=== PATIENT | female | born 1945 | race Caucasian/White ===

== ENCOUNTER 2017-11-07 09:06 | Inpatient (IN) | payer OTHER ==
[~2017-11-07] VITALS: Ht 167.6 cm; Wt 38.1 kg
[2017-11-07] MEDS ORDERED: methylPREDNISolone SOD SUCC 125 MG/2ML VIAL ONE (09:18)
[2017-11-07] MEDS ORDERED: methylPREDNISolone SOD SUCC 125 MG/2ML VIAL IV ONE (09:30)
[2017-11-07] MEDS ORDERED: IPRATROPIUM NEB FS 0.5 MG/2.5 ML AMPUL.NEB NEB ONE ×2 (09:30→10:00)
[2017-11-07] MEDS ORDERED: ALBUTEROL FS 2.5 MG/3 ML VIAL.NEB NEB ONE ×2 (09:30→10:00)
--- NOTE | 2017-11-07 09:30 | NUR ---
BB FAMILY: SOB, COPD EXACERBATION X 1 WEEK. SEEN BY FOR EVAL. PT CAME IN WITH PROTABLE OXYGEN, HX OF HYPOXIA. PT AAOX3. SAFETY AND COMFORT MEASURES PROVIDED. WILL MONITOR.
[2017-11-07 09:43] LABS: CALCIUM, SERUM 9.2 mg/dL (8.5-10.1); CARBON DIOXIDE 33 mmol/L (21-32); CHLORIDE 96 mmol/L (98-107); CREATININE 0.8 mg/dL (0.6-1.3); GLUCOSE 198 mg/dL (74-106); POTASSIUM 4.9 mmol/L (3.5-5.1); SODIUM SERUM 134 mmol/L (136-145); UREA NITROGEN, BLOOD 21 mg/dL (7-18)
[2017-11-07 09:46] LABS: BASOPHILS # (AUTO) 0.1 /CMM (0.0-0.2); BASOPHILS % (AUTO) 0.3 % (0.0-2.0); EOSINOPHILS # (AUTO) 0.1 /CMM (0.0-0.7); EOSINOPHILS % (AUTO) 0.4 % (0.0-6.0); HEMATOCRIT 48 % (33-45); HEMOGLOBIN 15.2 g/dL (11.5-14.8); LYMPHOCYTES # (AUTO) 1.7 /CMM (0.8-4.8); LYMPHOCYTES % (AUTO) 6.6 % (20.0-44.0); MEAN CORPUSCULAR HEMOGLOBIN 30 PG (26.0-33.0); MEAN CORPUSCULAR HGB CONC 32 g/dl (31.0-36.0); MEAN CORPUSCULAR VOLUME 94 fL (82-100); MONOCYTES # (AUTO) 1.2 /CMM (0.1-1.30); MONOCYTES % (AUTO) 4.6 % (2.0-12.0); NEUTROPHILS # (AUTO) 22.4 /CMM (1.8-8.9); NEUTROPHILS % (AUTO) 88.1 % (43.0-81.0); PLATELET COUNT (AUTO) 341 /CMM (150-450); RED BLOOD CELL COUNT(AUTO) 5.08 MIL/uL (4.0-5.2); WHITE BLOOD COUNT (AUTO) 25.4 K/uL (4.3-11.0)
[2017-11-07 09:53] LABS: TROPONIN I 1.503 ng/mL (0.00-0.056)
--- NOTE | 2017-11-07 09:54 | NUR ---
IV ACCESS STARTED. BLOOD DRAWN FOR LABS. PT MEDICATED ORDERED.
[2017-11-07 09:55] LABS: ALANINE AMINOTRANSFERASE 48 U/L (12-78); ALBUMIN 3.1 g/dL (3.4-5.0); ALKALINE PHOSPHATASE 207 U/L (46-116); ASPARTATE AMINOTRANSFERASE 54 U/L (15-37); B-TYPE NATRIURETIC PEPTIDE 8523 PG/ML (0-125); BILIRUBIN,TOTAL 0.5 mg/dL (0.2-1.0); TOTAL PROTEIN, SERUM 8.8 g/dL (6.4-8.2)
[2017-11-07] MEDS ORDERED: ALBUTEROL FS 2.5 MG/3 ML VIAL.NEB ONE (09:58)
[2017-11-07] MEDS ORDERED: IPRATROPIUM NEB FS 0.5 MG/2.5 ML AMPUL.NEB ONE (09:58)
[2017-11-07] MEDS ORDERED: ASPIRIN 325 MG TABLET PO ONE (10:00)
[2017-11-07] MEDS ORDERED: ASPIRIN 325 MG TABLET ONE (10:19)
[2017-11-07] MEDS ORDERED: ALEN70TA45 PO (10:34)
[2017-11-07] MEDS ORDERED: FLUT1DIS3 IH (10:34)
[2017-11-07] MEDS ORDERED: AMOX500T2 PO (10:34)
[2017-11-07] MEDS ORDERED: METO-356 PO (10:34)
[2017-11-07] MEDS ORDERED: PRED5TAB PO (10:34)
[2017-11-07] MEDS ORDERED: AMLO10TA4 PO (10:34)
[2017-11-07] MEDS ORDERED: ALBU18HF2 IH (10:34)
[2017-11-07] MEDS ORDERED: TIOT18CA3 IH (10:38)
[2017-11-07] MEDS ORDERED: [UNRECOGNIZED DRUG - OTHER] PO (10:38)
[2017-11-07] MEDS ORDERED: LACT237L30 PO (10:38)
--- NOTE | 2017-11-07 10:43 | NUR ---
REPORT GIVEN TO MARLON HUANG FOR AGUILA
--- NOTE | 2017-11-07 11:20 | NUR ---
RN NOTES ADMITTED A 72Y/O M FROM ER WITH DX OF SOB AND COPD. PT IS TRANSPORTED VIA STRETCHER ACCOMPANIED BY RN AND TECH. PT ALERT ORIENTEDX3 ABLE TO COMMUNICATE NEEDS, ON O2@2LPM VIA NC. AND SISTER AT BEDSIDE. DENIES PAIN AND CHEST PAIN AT THIS TIME. PATIENT REFUSED BODY CHECK SHE DENIES ANY SKIN ISSUES. ORIENTED TO UNIT AND CALL LIGHT USE, SAFETY MAINTAINED. CALL LIGHT WITHIN REACH, WILL CONT TO MONITOR
[2017-11-07] MEDS ORDERED: LEVALBUTEROL HCL NEB 1.25 MG/0.5 ML VIAL.NEB IH SCH (11:30)
[2017-11-07] MEDS ORDERED: TIOTROPIUM BROMIDE 6 CAP/BOX CAP.W.DEV IH SCH (11:30)
[2017-11-07] MEDS: IPRATROPIUM NEB FS 0.5 MG/2.5 ML AMPUL.NEB NEB SCH ×4 (11:54→23:26)
[2017-11-07 12:12] LABS: ABG BASE EXCESS 1.7 mmol/L; ABG OXYGEN SATURATION 87.4 % (92.0-98.5); ABG PCO2 52.2 mmHg (35.0-45.0); ABG PH 7.352 (7.350-7.450); ABG PO2 55.6 mmHg (75.0-100.0); AaDO2 89.7 mmHg; MetHb 0.4 % (0.0-1.5); O2Hb 86.2 % (94.0-97.0); SITE, ABG Right Brachial; VENT MODE, BG nasal cannula
[2017-11-07 12:13] LABS: MAGNESIUM 1.8 mg/dL (1.8-2.4); PHOSPHORUS 3.7 mg/dL (2.5-4.9)
[2017-11-07] MEDS: FLUTICASONE/VILANTEROL 1 EACH BLST.W.DEV IH SCH (12:30)
[2017-11-07] MEDS ORDERED: MORPHINE SULFATE INJ 2 MG/ML DISP.SYRIN IV PRN ×2 (12:30)
[2017-11-07] MEDS ORDERED: LORAZEPAM 0.5 MG TABLET PO PRN (12:30)
[2017-11-07] MEDS ORDERED: NITROGLYCERIN 0.4 MG/TAB BOTTLE SL PRN (12:30)
[2017-11-07 12:34] LABS: THYROID STIMULATING HORMONE 1.35 uIU/mL (0.358-3.74)
[2017-11-07] MEDS: DILTIAZEM HCL CD 240 MG PO SCH (13:10)
[2017-11-07] MEDS: ATORVASTATIN 40 MG TABLET PO SCH (13:11)
[2017-11-07] MEDS: LEVOFLOXACIN (500MG) 500 MG TABLET PO SCH (13:11)
[2017-11-07] MEDS: ASPIRIN 81 MG TAB.CHEW PO SCH (13:11)
[2017-11-07] MEDS: ENOXAPARIN SODIUM 60 MG/0.6 ML DISP.SYRIN SQ SCH ×2 (13:18→22:43)
[2017-11-07] MEDS: IV NS 0.9% 1,000 ML IV PRN ×2 (13:21→21:52)
[2017-11-07 13:28] VITALS: BP 128/63
[2017-11-07] MEDS ORDERED: IPRATROPIUM NEB FS 0.5 MG/2.5 ML AMPUL.NEB NEB SCH (13:30)
[2017-11-07] MEDS ORDERED: ALBUTEROL FS 2.5 MG/0.5 ML VIAL.NEB NEB SCH (13:30)
[2017-11-07] MEDS: ALBUTEROL FS 2.5 MG/0.5 ML VIAL.NEB NEB SCH ×3 (14:59→23:26)
--- NOTE | 2017-11-07 15:28 | NUR ---
RN NOTES URINE SAMPLE COLLLECTED, CALLED LAB FOR SPECIMEN PICKUP
[2017-11-07 16:00] VITALS: BP 130/83
[2017-11-07 16:13] LABS: APPEARANCE,URINE SL CLOUDY (CLEAR); BILIRUBIN,URINE 1+ (NEGATIVE); BLOOD, URINE TRACE-INTA Ery/uL (NEGATIVE); COLOR,URINE YELLOW (YELLOW); KETONES,URINE NEGATIVE (NEGATIVE); LEUKOCYTE ESTERASE ,URINE NEGATIVE (NEGATIVE); NITRITE, URINE NEGATIVE (NEGATIVE); PROTEIN,URINE 2+ mg/dl (NEGATIVE); UGLUCOSE 1+ mg/dL (NEGATIVE); UROBILINOGEN,URINE 0.2 EU/dL (0.2)
[2017-11-07] MEDS ORDERED: FLUTICASONE/SALMETEROL DISKUS IH SCH (17:00)
[2017-11-07] MEDS: methylPREDNISolone SOD SUCC 125 MG/2ML VIAL IV SCH (17:42)
[2017-11-07 20:00] VITALS: BP 121/61
--- NOTE | 2017-11-07 20:00 | NUR ---
ANNABELLA RN NOTES RECEIVED PTS IN BED A/O X4 AMBULATORY , ABLE TO MAKE NEEDS KNOWN.ON TELE SR-ST WITH PAC,ON THE MONITOR SATING 98% NO SOB NO DISTRESS NOTED NO C/O PAIN AT THIS TIME, PTS IS AMBULATORY , WITH 02 VIA NC AT 2LITERS /MIN, ALL NEEDS ATTENDED TOO CALL LIGHT WITHIN REACH , ALL DUE MEDS GIVEN ORDERED, KEPT PTS CLEAN DRY AND COMFORTABLE.WILL CONTINUE TO MONITOR.
[2017-11-08] VITALS: BP 110/62
[2017-11-08] MEDS: methylPREDNISolone SOD SUCC 125 MG/2ML VIAL IV SCH ×3 (00:46→16:26)
[2017-11-08] MEDS: IPRATROPIUM NEB FS 0.5 MG/2.5 ML AMPUL.NEB NEB SCH ×6 (03:16→23:30)
[2017-11-08] MEDS: ALBUTEROL FS 2.5 MG/0.5 ML VIAL.NEB NEB SCH ×6 (03:16→23:30)
--- NOTE | 2017-11-08 03:40 | NUR ---
ANNABELLA RN NOTES REMAINS WITH RIGHT HAND G#20 IVF OF NS AT 125CC/HR INFUSING WELL.
[2017-11-08 04:00] VITALS: BP 116/59
[2017-11-08 06:37] LABS: INR 0.99 (0.87-1.13); PROTHROMBIN TIME 10.3 SECS (9.5-12.7)
[2017-11-08 06:39] LABS: HEMATOCRIT 43 % (33-45); HEMOGLOBIN 13.8 g/dL (11.5-14.8); LYMPHOCYTES # (AUTO) 0.5 /CMM (0.8-4.8); LYMPHOCYTES % (AUTO) 3.6 % (20.0-44.0); MEAN CORPUSCULAR HEMOGLOBIN 30 PG (26.0-33.0); MEAN CORPUSCULAR HGB CONC 32 g/dl (31.0-36.0); MEAN CORPUSCULAR VOLUME 94 fL (82-100); MONOCYTES # (AUTO) 0.3 /CMM (0.1-1.30); MONOCYTES % (AUTO) 2.8 % (2.0-12.0); NEUTROPHILS # (AUTO) 11.8 /CMM (1.8-8.9); NEUTROPHILS % (AUTO) 93.6 % (43.0-81.0); PLATELET COUNT (AUTO) 352 /CMM (150-450); RDW COEFFICIENT OF VARIATION 13.7 (11.5-15.0); RED BLOOD CELL COUNT(AUTO) 4.58 MIL/uL (4.0-5.2); WHITE BLOOD COUNT (AUTO) 12.6 K/uL (4.3-11.0)
[2017-11-08 06:49] LABS: ALANINE AMINOTRANSFERASE 42 U/L (12-78); ALBUMIN 2.8 g/dL (3.4-5.0); ALKALINE PHOSPHATASE 173 U/L (46-116); ASPARTATE AMINOTRANSFERASE 26 U/L (15-37); BILIRUBIN,TOTAL 0.4 mg/dL (0.2-1.0); CALCIUM, SERUM 8.6 mg/dL (8.5-10.1); CARBON DIOXIDE 36 mmol/L (21-32); CHLORIDE 103 mmol/L (98-107); CREATININE 0.6 mg/dL (0.6-1.3); GLUCOSE 174 mg/dL (74-106); PHOSPHORUS 2.8 mg/dL (2.5-4.9); POTASSIUM 5.2 mmol/L (3.5-5.1); SODIUM SERUM 141 mmol/L (136-145); TOTAL PROTEIN, SERUM 7.6 g/dL (6.4-8.2); UREA NITROGEN, BLOOD 19 mg/dL (7-18)
[2017-11-08 07:07] LABS: TROPONIN I 0.997 ng/mL (0.00-0.056)
[2017-11-08 07:09] LABS: AMYLASE 36 U/L (25-115); LIPASE 187 U/L (73-393)
--- NOTE | 2017-11-08 07:31 | NUR ---
ANNABELLA RN NOTES RECEIVED PT ON BED. A/O X 4. ON BRICKLAYER'S ASSISTANT SR-ST WITH PAC. ON NASAL CANNULA 2L TOLERATING WELL. IV ACCESS ON RIGHT HAND 20G NS @125CC/HR SATURATING WELL.SIDE RAILS UP. HEAD OF BED ELEVATED. CALL WITHIN REACH. WILL CONTINUE TO MONITOR PT CLOSELY.
[2017-11-08 08:00] VITALS: BP 116/55
[2017-11-08] MEDS: DILTIAZEM HCL CD 240 MG PO SCH (08:15)
[2017-11-08] MEDS: ATORVASTATIN 40 MG TABLET PO SCH (08:15)
[2017-11-08] MEDS: FLUTICASONE/VILANTEROL 1 EACH BLST.W.DEV IH SCH (08:15)
[2017-11-08] MEDS: ASPIRIN 81 MG TAB.CHEW PO SCH (08:16)
[2017-11-08] MEDS: IV NS 0.9% 1,000 ML IV PRN (11:50)
[2017-11-08 12:00] VITALS: BP 112/53
[2017-11-08] MEDS: LEVOFLOXACIN (500MG) 500 MG TABLET PO SCH (12:03)
--- NOTE | 2017-11-08 13:32 | NUR ---
HEALTHCARE ANALYST NOTES NOTIFIED DR DEAL ABOUT PT HAVING VTACH EPISODE AT 1046AM. ORDERD LABS AND WILL NOTIFY DR. RANKIN.
[2017-11-08 16:00] VITALS: BP 119/58
--- NOTE | 2017-11-08 18:52 | NUR ---
INTEGRATED LOGISTICS PROGRAMS DIRECTOR NOTES NO ACUTE CHANGES NOTED DURING THE SHIFT. IV ACCESS ON YAN #20 RUNNING WELL. ON NC 2L TOLERATING WELL. NO SIGNS OF DISTRESS. CALL LIGHT IS PLACED WITHIN REACH. SIDE RAILS UP. HEAD OF BED ELEVATED. DUE MEDS GIVEN. WILL ENDORSE TO THE PM NURSE.
--- NOTE | 2017-11-08 19:30 | NUR ---
ASSISTANT MANAGER RETAIL INITIAL NOTE PT RECEIVED AWAKE AND ALERT SITTING UP IN BED. A/O X4 AND ABLE TO VERBALIZE NEEDS. ON 2L OF O2VIA NC AND SATURATING 95%. BREATHING EVEN AND UNLABORED WHEN IN BED. NOTED TO HAVE SOB WHEN AMBULATING TO THE RESTROOM. TELE- SR 81 WITH PAC. IV YAN #20 CLEAN AND DRY WITH FLUIDS INFUSING. NO C/O DISCOMFORT NOTED. HOB ELEVATED. CALL LIGHT WITHIN REACH. WILL CONTINUE TO MONITOR.
[2017-11-08 20:00] VITALS: BP 110/54
[2017-11-09] VITALS: BP 105/53
[2017-11-09] MEDS: methylPREDNISolone SOD SUCC 125 MG/2ML VIAL IV SCH ×3 (00:54→16:32)
[2017-11-09] MEDS: ALBUTEROL FS 2.5 MG/0.5 ML VIAL.NEB NEB SCH ×3 (03:30→11:46)
[2017-11-09] MEDS: IPRATROPIUM NEB FS 0.5 MG/2.5 ML AMPUL.NEB NEB SCH ×6 (03:30→23:18)
[2017-11-09 04:00] VITALS: BP 102/40
--- NOTE | 2017-11-09 06:42 | NUR ---
SUPPORT ENGINEER CLOSING NOTE PT REMAINED STABLE DURING SHIFT. NO ACUTE DISTRESS NOTED. NOTED WITH SOB DURING AMBULATION TO THE RESTROOM. HOB ELEVATED. ON 2L OF O2 AND TOLERATING WELL. CALL LIGHT WITHIN REACH. WILL ENDORSE TO NEXT SHIFT FOR CONTINUITY OF CARE.
[2017-11-09 06:54] LABS: HEMATOCRIT 41 % (33-45); HEMOGLOBIN 13.1 g/dL (11.5-14.8); LYMPHOCYTES # (AUTO) 0.5 /CMM (0.8-4.8); LYMPHOCYTES % (AUTO) 2.2 % (20.0-44.0); MEAN CORPUSCULAR HEMOGLOBIN 30 PG (26.0-33.0); MEAN CORPUSCULAR HGB CONC 32 g/dl (31.0-36.0); MEAN CORPUSCULAR VOLUME 94 fL (82-100); MONOCYTES # (AUTO) 0.6 /CMM (0.1-1.30); NEUTROPHILS # (AUTO) 20.3 /CMM (1.8-8.9); NEUTROPHILS % (AUTO) 94.8 % (43.0-81.0); PLATELET COUNT (AUTO) 395 /CMM (150-450); RDW COEFFICIENT OF VARIATION 13.5 (11.5-15.0); RED BLOOD CELL COUNT(AUTO) 4.36 MIL/uL (4.0-5.2); WHITE BLOOD COUNT (AUTO) 21.4 K/uL (4.3-11.0)
[2017-11-09 07:09] LABS: ALANINE AMINOTRANSFERASE 52 U/L (12-78); ALBUMIN 2.7 g/dL (3.4-5.0); ALKALINE PHOSPHATASE 213 U/L (46-116); ASPARTATE AMINOTRANSFERASE 34 U/L (15-37); BILIRUBIN,TOTAL 0.3 mg/dL (0.2-1.0); CALCIUM, SERUM 8.6 mg/dL (8.5-10.1); CARBON DIOXIDE 36 mmol/L (21-32); CHLORIDE 105 mmol/L (98-107); CREATININE 0.6 mg/dL (0.6-1.3); GLUCOSE 179 mg/dL (74-106); MAGNESIUM 2.1 mg/dL (1.8-2.4); PHOSPHORUS 2.1 mg/dL (2.5-4.9); POTASSIUM 4.8 mmol/L (3.5-5.1); SODIUM SERUM 143 mmol/L (136-145); TOTAL PROTEIN, SERUM 7.2 g/dL (6.4-8.2); UREA NITROGEN, BLOOD 17 mg/dL (7-18)
[2017-11-09 08:00] VITALS: BP 124/58
[2017-11-09] MEDS: FLUTICASONE/VILANTEROL 1 EACH BLST.W.DEV IH SCH (08:34)
[2017-11-09] MEDS: ASPIRIN 81 MG TAB.CHEW PO SCH (08:35)
[2017-11-09] MEDS: DILTIAZEM HCL CD 240 MG PO SCH (08:35)
[2017-11-09 08:36] LABS: TROPONIN I 0.743 ng/mL (0.00-0.056)
[2017-11-09] MEDS: ATORVASTATIN 40 MG TABLET PO SCH (08:38)
[2017-11-09] MEDS: IV NS 0.9% 1,000 ML IV PRN ×2 (08:39→15:35)
[2017-11-09] MEDS: LEVOFLOXACIN (500MG) 500 MG TABLET PO SCH (11:05)
[2017-11-09 12:00] VITALS: BP 122/64
[2017-11-09] MEDS: LEVALBUTEROL HCL NEB 1.25 MG/0.5 ML VIAL.NEB NEB SCH ×2 (14:54→23:18)
[2017-11-09 16:00] VITALS: BP 110/56
[2017-11-09] MEDS ORDERED: K PHOS NEUTRAL 250 MG TABLET PO ONE (16:30)
--- NOTE | 2017-11-09 18:16 | NUR ---
Tele/RN - Notes Patient alert and oriented throughout the shift, no acute distress, still with SOB when ambulating to the toilet, non- productive cough, exp. wheezing, denies chest pain, tele shows SR-ST with PACs. Patient was educated to increase fluid intake to help liquefy secretions and assisted with ADLs to prevent exhaustion. Patient currently on NS @ 125 ml/hr to maintain hydration, on Solumedrol, breathing tx, and oral Levaquin. All needs anticipated and met. Will continue with current medical management.
--- NOTE | 2017-11-09 19:10 | NUR ---
PHYSICIAN NON INVASIVE CARDIOLOGIST OPENING NOTES RECEIVED REPORT FROM AM RN. PATIENT A/A/O X4, ABLE TO MAKE NEEDS KNOWN. SOME SOB NOTED W/ EXERTION BUT DENIES DIFFICULTY BREATHING. PATIENT ON O2 4L VIA NC & TOLERATING WELL. ON TELE SINUS RHYTHM IN THE 80S. RIGHT AC IV #20 INTACT & PATENT W/ DRESSING CDI & IVF NS @ 125 ML/HR. DENIES ANY PAIN OR DISCOMFORT @ THIS TIME. SAFETY MEASURES IN PLACE W/ SIDE RAILS UP, BED LOCKED & IN LOWEST POSITION & CALL LIGHT WITHIN REACH. WILL CONTINUE TO MONITOR.
[2017-11-09 20:00] VITALS: BP 127/61
[2017-11-10] VITALS: BP 148/75
[2017-11-10] MEDS: methylPREDNISolone SOD SUCC 125 MG/2ML VIAL IV SCH ×3 (00:24→16:21)
[2017-11-10] MEDS: IV NS 0.9% 1,000 ML IV PRN ×2 (01:31→23:12)
[2017-11-10] MEDS: IPRATROPIUM NEB FS 0.5 MG/2.5 ML AMPUL.NEB NEB SCH ×6 (03:50→23:37)
[2017-11-10 04:00] VITALS: BP 141/70
[2017-11-10 07:17] LABS: CALCIUM, SERUM 8.2 mg/dL (8.5-10.1); CARBON DIOXIDE 35 mmol/L (21-32); CHLORIDE 103 mmol/L (98-107); CREATININE 0.5 mg/dL (0.6-1.3); GLUCOSE 179 mg/dL (74-106); MAGNESIUM 1.9 mg/dL (1.8-2.4); PHOSPHORUS 2.4 mg/dL (2.5-4.9); POTASSIUM 3.9 mmol/L (3.5-5.1); SODIUM SERUM 143 mmol/L (136-145); UREA NITROGEN, BLOOD 15 mg/dL (7-18)
[2017-11-10 07:23] LABS: HEMATOCRIT 40 % (33-45); LYMPHOCYTES # (AUTO) 0.3 /CMM (0.8-4.8); LYMPHOCYTES % (AUTO) 1.3 % (20.0-44.0); MEAN CORPUSCULAR HEMOGLOBIN 31 PG (26.0-33.0); MEAN CORPUSCULAR HGB CONC 32 g/dl (31.0-36.0); MEAN CORPUSCULAR VOLUME 95 fL (82-100); MONOCYTES # (AUTO) 0.6 /CMM (0.1-1.30); MONOCYTES % (AUTO) 2.5 % (2.0-12.0); NEUTROPHILS # (AUTO) 22.1 /CMM (1.8-8.9); NEUTROPHILS % (AUTO) 96.2 % (43.0-81.0); PLATELET COUNT (AUTO) 428 /CMM (150-450); RDW COEFFICIENT OF VARIATION 13.5 (11.5-15.0); RED BLOOD CELL COUNT(AUTO) 4.25 MIL/uL (4.0-5.2)
--- NOTE | 2017-11-10 07:30 | NUR ---
SENIOR QUALITY CONTROL TECHNICIAN AM NOTES PT IN BED, A/A/O X4, ABLE TO MAKE NEEDS KNOWN. AFEBRILE. SOME SOB NOTED W/ EXERTION BUT DENIES DIFFICULTY BREATHING. PATIENT ON O2 2L VIA NC & TOLERATING WELL. TELEMETRY READS SR, HR 96, DENIES CHEST PAIN/DISCOMFORT, RT AC G20 WITH NS @ 125 ML/HR. SITE CLEAR, AMBULATES WITH ASSIST, REGULAR DIET, SAFETY MEASURES IN PLACE W/ SIDE RAILS UP, BED LOCKED & IN LOWEST POSITION & CALL LIGHT WITHIN REACH. WILL CONTINUE TO MONITOR.
[2017-11-10] MEDS: LEVALBUTEROL HCL NEB 1.25 MG/0.5 ML VIAL.NEB NEB SCH ×3 (07:36→23:37)
[2017-11-10 08:00] VITALS: BP 134/57
[2017-11-10] MEDS: FLUTICASONE/VILANTEROL 1 EACH BLST.W.DEV IH SCH (09:24)
[2017-11-10] MEDS: ATORVASTATIN 40 MG TABLET PO SCH (09:25)
[2017-11-10] MEDS: DILTIAZEM HCL CD 240 MG PO SCH (09:25)
[2017-11-10] MEDS: ASPIRIN 81 MG TAB.CHEW PO SCH (09:25)
--- NOTE | 2017-11-10 09:30 | NUR ---
COOPERATIVE EXTENSION AGENT NOTES DR. NEWTON AT BEDSIDE. DUE MEDS GIVEN.
[2017-11-10] MEDS: LEVOFLOXACIN (500MG) 500 MG TABLET PO SCH (11:55)
[2017-11-10 12:00] VITALS: BP 140/73
[2017-11-10 16:00] VITALS: BP 139/70
[2017-11-10] MEDS ORDERED: K PHOS NEUTRAL 250 MG TABLET PO ONE (16:00)
--- NOTE | 2017-11-10 18:51 | NUR ---
MEASUREMENT TECHNICIAN CLOSING NOTES PT RESTING IN BED, A/A/O X4, ABLE TO MAKE NEEDS KNOWN. AFEBRILE. SOME SOB NOTED W/ EXERTION AND GOING TO BATHROOM. PATIENT ON O2 2L VIA NC & TOLERATING WELL. TELEMETRY READS SR, HR 96, DENIES CHEST PAIN/DISCOMFORT, RT AC G20 WITH NS @ 125 ML/HR ON AND OFF. SITE CLEAR, AMBULATES WITH ASSIST, REGULAR DIET, SAFETY MEASURES IN PLACE W/ SIDE RAILS UP, BED LOCKED & IN LOWEST POSITION & CALL LIGHT WITHIN REACH. ALL NEEDS MET. NO OTHER SIGNIFICANT CHANGE IN CONDITION. WILL ENDORSE TO NEXT SHIFT FOR AGUILA.
--- NOTE | 2017-11-10 19:30 | NUR ---
STENCIL PRINTER INITIAL NOTES RECEIVED REPORT FROM AM SHIFT RN. PATIENT IN BED, A/A/O X4, ABLE TO MAKE NEEDS KNOWN. NOTED WITH SOB UPON EXERTION, ESPECIALLY WHEN SHE AMBULATES TO THE BATHROOM, LONG NASAL CANNULA TUBING GIVEN TO THE PATIENT, WITH IMPROVEMENT IN BREATHING WHILE AMBULATING TO AND FROM BATHROOM. ON TELEMETRY MONITORING, REVEALING SINUS RHYTHM IN THE UPPER 90s. RIGHT AC IV #22G INTACT & PATENT W/ DRESSING CDI & IVF NS @ 125 ML/HR. DENIES ANY PAIN OR DISCOMFORT @ THIS TIME. SAFETY MEASURES IN PLACE W/ SIDE RAILS UP, BED LOCKED & IN LOWEST POSITION & CALL LIGHT WITHIN REACH. WILL CONTINUE TO MONITOR.
[2017-11-10 20:00] VITALS: BP 142/75
[2017-11-11] VITALS: BP 145/62
[2017-11-11] MEDS: methylPREDNISolone SOD SUCC 125 MG/2ML VIAL IV SCH ×3 (01:17→16:23)
[2017-11-11 04:00] VITALS: BP 125/69
[2017-11-11] MEDS: IPRATROPIUM NEB FS 0.5 MG/2.5 ML AMPUL.NEB NEB SCH ×6 (04:00→23:30)
[2017-11-11 04:30] VITALS: BP 131/59
--- NOTE | 2017-11-11 07:00 | NUR ---
RN CLOSING NOTES PATIENT RESTING COMFORTABLY IN BED, NO ACUTE CHANGES THROUGHOUT THE SHIFT. WILL ENDORSE THE PATIENT TO THE AM SHIFT NURSE FOR AGUILA
[2017-11-11] MEDS ORDERED: ALENDRONATE 70 MG TABLET PO SCH (07:30)
--- NOTE | 2017-11-11 07:30 | NUR ---
PROCESS ENGINEERING INTERN AM NOTES PT IN BED, A/A/O X4, ABLE TO MAKE NEEDS KNOWN. AFEBRILE. SOME SOB NOTED W/ EXERTION BUT DENIES DIFFICULTY BREATHING. PATIENT ON O2 2L VIA NC & TOLERATING WELL. TELEMETRY READS SR, HR 95, DENIES CHEST PAIN/DISCOMFORT, RT HAND G20 WITH NS @ 125 ML/HR. SITE CLEAR, PATIENT REFUSED IVF FOR NOW. AMBULATES WITH ASSIST, REGULAR DIET, SAFETY MEASURES IN PLACE W/ SIDE RAILS UP, BED LOCKED & IN LOWEST POSITION & CALL LIGHT WITHIN REACH. WILL CONTINUE TO MONITOR.
[2017-11-11] MEDS: LEVALBUTEROL HCL NEB 1.25 MG/0.5 ML VIAL.NEB NEB SCH ×3 (07:35→23:30)
[2017-11-11 08:00] VITALS: BP 141/75
[2017-11-11] MEDS: FLUTICASONE/VILANTEROL 1 EACH BLST.W.DEV IH SCH (09:03)
[2017-11-11] MEDS: ATORVASTATIN 40 MG TABLET PO SCH (09:04)
[2017-11-11] MEDS: ASPIRIN 81 MG TAB.CHEW PO SCH (09:04)
[2017-11-11] MEDS: DILTIAZEM HCL CD 240 MG PO SCH (09:07)
--- NOTE | 2017-11-11 09:30 | NUR ---
ON SITE NURSE NOTES DR. NEWTON AT BEDSIDE. DUE MEDS GIVEN.
--- NOTE | 2017-11-11 09:50 | NUR ---
MS RN NOTES DC TELE PER DR. RANKIN
[2017-11-11] MEDS: LEVOFLOXACIN (500MG) 500 MG TABLET PO SCH (11:31)
[2017-11-11] MEDS ORDERED: K PHOS NEUTRAL 250 MG TABLET PO ONE (15:30)
[2017-11-11 16:00] VITALS: BP 143/79
--- NOTE | 2017-11-11 19:13 | NUR ---
RN CLOSING NOTES PT RESTING IN BED, A/A/O X4, ABLE TO MAKE NEEDS KNOWN. AFEBRILE. SOME SOB NOTED W/ EXERTION AND GOING TO BATHROOM. PATIENT ON O2 2L VIA NC & TOLERATING WELL. DENIES CHEST PAIN/DISCOMFORT, RT HAND G20 IV ACCESS FLUSHES WELL,SITE CLEAR, AMBULATES WITH ASSIST, REGULAR DIET, SAFETY MEASURES IN PLACE W/ SIDE RAILS UP, BED LOCKED & IN LOWEST POSITION & CALL LIGHT WITHIN REACH. ALL NEEDS MET. NO OTHER SIGNIFICANT CHANGE IN CONDITION. WILL ENDORSE TO NEXT SHIFT FOR AGUILA.
--- NOTE | 2017-11-11 19:15 | NUR ---
MS RN OPENING NOTES RECEIEVED REPORT AND PATIENT FROM DAY SHIFT.
[2017-11-11 20:00] VITALS: BP 124/67
--- NOTE | 2017-11-11 20:46 | NUR ---
PEER SPECIALIST CARE NOTES. TRANSFERRED CARE OF PATIENT AND GAVE REPORT TO SAL HERRERA.
--- NOTE | 2017-11-11 20:50 | NUR ---
MS FOOD SERVER NOTES. RECEIVED CARE OF PATIENT AND REPORT BACK FROM SAL HERRERA.
--- NOTE | 2017-11-11 22:33 | NUR ---
RN MS NOTES. MOVED PATIENT TO 205 BED 1. TRANSFERRED CARE OF PATIENT TO SAL VIRAMONTES AND GAVE REPORT TO HIM. PATIENT MOVED TO 205 BED 1 WITH ALL HER BELONGINGS. PATIENT WAS TRANSFERRED IN STABLE CONDITION.
--- NOTE | 2017-11-11 22:40 | NUR ---
MS RN NOTES RECEIVED AWAKE A/0 X 4. NOT IN ANY DISTRESS. NO SOB NOTED. DENIES ANY PAIN OR DISCOMFORT AT THIS TIME. WITH IV-HL PATENT & INTACT. CALL LIGHT WITHIN REACH. BED IN LOWEST POSITION. SR UP X 2 FOR SAFETY WITH BED ALARM ON. WILL CONTINUE TO MONITOR.
[2017-11-12] VITALS: BP 142/73
[2017-11-12] MEDS: methylPREDNISolone SOD SUCC 125 MG/2ML VIAL IV SCH ×3 (01:00→16:20)
[2017-11-12] MEDS: IPRATROPIUM NEB FS 0.5 MG/2.5 ML AMPUL.NEB NEB SCH ×5 (03:30→20:28)
--- NOTE | 2017-11-12 06:42 | NUR ---
MS RN NOTES AWAKE & RESPONSIVE. NOT IN ANY DISTRESS. NO SOB NOTED. DENIES ANY PAIN OR DISCOMFORT AT THIS TIME. WITH IV-HL PATENT & INTACT. CALL LIGHT WITHIN REACH. BED IN LOWEST POSITION. SR UP X 2 FOR SAFETY WITH BED ALARM ON. WILL ENDORSE TO NEXT SHIFT.
[2017-11-12 07:12] LABS: CALCIUM, SERUM 8.2 mg/dL (8.5-10.1); CHLORIDE 97 mmol/L (98-107); CREATININE 0.6 mg/dL (0.6-1.3); GLUCOSE 174 mg/dL (74-106); PHOSPHORUS 2.6 mg/dL (2.5-4.9); POTASSIUM 3.8 mmol/L (3.5-5.1); SODIUM SERUM 140 mmol/L (136-145); UREA NITROGEN, BLOOD 14 mg/dL (7-18)
--- NOTE | 2017-11-12 07:39 | NUR ---
MS RN OPENING NOTE PATIENT IS ALERT AND ORIENTED x4. NO PAIN AT THIS TIME. NO SOB OR DISTRESS NOTED. CALL LIGHT WITHIN REACH. SAFETY MEASURES IMPLEMENTED. ABLE TO COMMUNICATE NEEDS. IV ON RIGHT HAND INTACT AND PATENT NO REDNESS OR SWELLING NOTED. PATIENT C/O CONGESTION, WILL NOTIFY MD. AMBULATORY. REGULAR DIET. POSSIBLE DISCHARGE TODAY. WILL CONTINUE TO MONITOR THROUGHOUT SHIFT.
[2017-11-12 07:55] LABS: CARBON DIOXIDE 43 mmol/L (21-32)
[2017-11-12 08:00] VITALS: BP 141/71
[2017-11-12] MEDS: ATORVASTATIN 40 MG TABLET PO SCH (08:15)
[2017-11-12] MEDS: ASPIRIN 81 MG TAB.CHEW PO SCH (08:15)
[2017-11-12] MEDS: DILTIAZEM HCL CD 240 MG PO SCH (08:16)
[2017-11-12] MEDS: FLUTICASONE/VILANTEROL 1 EACH BLST.W.DEV IH SCH (09:00)
[2017-11-12] MEDS: LEVALBUTEROL HCL NEB 1.25 MG/0.5 ML VIAL.NEB NEB SCH ×2 (09:58→15:30)
[2017-11-12] MEDS: LEVOFLOXACIN (500MG) 500 MG TABLET PO SCH (11:44)
[2017-11-12] MEDS: NYSTATIN (PYXIS) 500,000 UNIT/5 ML ORAL.SUSP PO SCH ×3 (13:27→21:58)
[2017-11-12 16:00] VITALS: BP 124/71
[2017-11-12] MEDS: MENTHOL/CETYLPYRD (CEPACOL) 1 LOZ LOZENGE PO PRN (16:21)
--- NOTE | 2017-11-12 18:52 | NUR ---
MS RN CLOSING NOTE PATIENT IS ALERT AND ORIENTED x4. NO PAIN AT THIS TIME. NO SOB OR DISTRESS NOTED. CALL LIGHT WITHIN REACH AT ALL TIMES. SAFETY MEASURES IMPLEMENTED. ABLE TO COMMUNICATE NEEDS. ALL DUE MEDICATIONS GIVEN ORDERED. ALL NURSING CARE NEEDS ATTENDED TO NEEDED. IV ON RIGHT HAND INTACT AND PATENT, NO REDNESS OR SWELLING NOTED. NO IV FLUIDS. ROUTINE BREATHING TX. HAS PRN THROAT LOZENGES. PER MD TO HAVE PATIENT UP OUT OF BED FOR EVERY MEAL AND TO AMBULATE WITH WALKER AND OXYGEN TOLERATED WITH REST PERIODS. ON 2L/MIN OXYGEN VIA NASAL CANNULA. WILL ENDORSE TO WORLD HISTORY TEACHER NURSE FOR AGUILA
[2017-11-12 20:14] VITALS: BP 124/77
[2017-11-12 20:18] VITALS: BP 130/74
--- NOTE | 2017-11-12 20:59 | NUR ---
MS RN NOTES NO SIGNIFICANT CHANGES NOTED. REPORT GIVEN TO KALE HUANG FOR CONTINUITY OF CARE.
--- NOTE | 2017-11-12 21:00 | NUR ---
RN OPEN NOTES RECEIVED PATIENT AWAKE IN BED. A/O X4. NO SIGNS OF DISTRESS OR DISCOMFORT. BREATHING EVEN AND UNLABORED. ON 2LPM O2 VIA NC. IV ACCESS IN R HAND, PATENT AND INTACT, NO SIGNS OF REDNESS OR INFILTRATION. BED IN LOW LOCKED POSITION WITH SIDE RAILS X2. CALL LIGHT WITHIN REACH. WILL CONTINUE TO MONITOR.
[2017-11-13] MEDS: methylPREDNISolone SOD SUCC 125 MG/2ML VIAL IV SCH ×3 (00:43→16:31)
[2017-11-13] MEDS: IPRATROPIUM NEB FS 0.5 MG/2.5 ML AMPUL.NEB NEB SCH ×7 (03:52→22:43)
[2017-11-13 06:49] LABS: BASOPHILS % (AUTO) 0.2 % (0.0-2.0); EOSINOPHILS % (AUTO) 0.1 % (0.0-6.0); HEMATOCRIT 41 % (33-45); HEMOGLOBIN 13.6 g/dL (11.5-14.8); LYMPHOCYTES # (AUTO) 0.3 /CMM (0.8-4.8); LYMPHOCYTES % (AUTO) 1.9 % (20.0-44.0); MEAN CORPUSCULAR HEMOGLOBIN 30 PG (26.0-33.0); MEAN CORPUSCULAR HGB CONC 33 g/dl (31.0-36.0); MEAN CORPUSCULAR VOLUME 90 fL (82-100); MONOCYTES # (AUTO) 0.6 /CMM (0.1-1.30); NEUTROPHILS # (AUTO) 13.9 /CMM (1.8-8.9); NEUTROPHILS % (AUTO) 93.8 % (43.0-81.0); PLATELET COUNT (AUTO) 451 /CMM (150-450); RDW COEFFICIENT OF VARIATION 12.6 (11.5-15.0); RED BLOOD CELL COUNT(AUTO) 4.53 MIL/uL (4.0-5.2); WHITE BLOOD COUNT (AUTO) 14.8 K/uL (4.3-11.0)
--- NOTE | 2017-11-13 06:56 | NUR ---
RN CLOSING NOTES PATIENT AWAKE IN BED. A/O X4. NO SIGNS OF DISTRESS OR DISCOMFORT. BREATHING EVEN AND UNLABORED. ON 2LPM O2 VIA NC. IV ACCESS IN R HAND, PATENT AND INTACT, NO SIGNS OF REDNESS OR INFILTRATION. ALL NEEDS MET. NO SIGNIFICANT CHANGES THROUGH THE NIGHT. BED IN LOW LOCKED POSITION WITH SIDE RAILS X2. CALL LIGHT WITHIN REACH. WILL ENDORSE TO AM SHIFT FOR AGUILA.
[2017-11-13 07:18] LABS: CALCIUM, SERUM 8.2 mg/dL (8.5-10.1); CHLORIDE 99 mmol/L (98-107); CREATININE 0.5 mg/dL (0.6-1.3); GLUCOSE 172 mg/dL (74-106); MAGNESIUM 1.7 mg/dL (1.8-2.4); PHOSPHORUS 2.4 mg/dL (2.5-4.9); POTASSIUM 3.7 mmol/L (3.5-5.1); SODIUM SERUM 140 mmol/L (136-145); UREA NITROGEN, BLOOD 14 mg/dL (7-18)
--- NOTE | 2017-11-13 07:45 | NUR ---
MS RN OPENING NOTE PATIENT IS ALERT AND ORIENTED x4. NO PAIN AT THIS TIME. NO SOB OR DISTRESS NOTED. CALL LIGHT WITHIN REACH. SAFETY MEASURES IMPLEMENTED. ABLE TO COMMUNICATE NEEDS. IV ON RIGHT HAND INTACT AND PATENT NO REDNESS OR SWELLING NOTED. NO IV FLUIDS AT THIS TIME. ON 2L/MIN OF OXYGEN VIA NASAL CANNULA, TOLERATING WELL. WILL CONTINUE TO MONITOR THROUGHOUT SHIFT
[2017-11-13 07:48] LABS: CARBON DIOXIDE 41 mmol/L (21-32)
[2017-11-13] MEDS: LEVALBUTEROL HCL NEB 1.25 MG/0.5 ML VIAL.NEB NEB SCH ×4 (07:58→22:43)
[2017-11-13 08:00] VITALS: BP 143/73
[2017-11-13] MEDS: NYSTATIN (PYXIS) 500,000 UNIT/5 ML ORAL.SUSP PO SCH ×4 (08:14→21:43)
[2017-11-13] MEDS: ATORVASTATIN 40 MG TABLET PO SCH (08:14)
[2017-11-13] MEDS: ASPIRIN 81 MG TAB.CHEW PO SCH (08:14)
[2017-11-13] MEDS: FLUTICASONE/VILANTEROL 1 EACH BLST.W.DEV IH SCH (09:00)
[2017-11-13] MEDS: DILTIAZEM HCL CD 240 MG PO SCH (09:05)
[2017-11-13] MEDS ORDERED: KEY,NONCONTROL,TO KEEP IN PYXI 1 EA MC ONE (10:27)
[2017-11-13] MEDS: LEVOFLOXACIN (500MG) 500 MG TABLET PO SCH (12:16)
[2017-11-13] MEDS: MENTHOL/CETYLPYRD (CEPACOL) 1 LOZ LOZENGE PO PRN (12:17)
[2017-11-13] MEDS ORDERED: MAGNESIUM OXIDE 400 MG TABLET PO ONE (13:00)
[2017-11-13 16:00] VITALS: BP 133/68
[2017-11-13] MEDS ORDERED: K PHOS NEUTRAL 250 MG TABLET PO ONE (16:00)
--- NOTE | 2017-11-13 18:37 | NUR ---
MS RN CLOSING NOTE PATIENT IS ALERT AND ORIENTED x4. NO SOB OR DISTRESS NOTED. CALL LIGHT WITHIN REACH AT ALL TIMES. SAFETY MEASURES IMPLEMENTED AT ALL TIMES. ALL DUE MEDICATIONS GIVEN ORDERED. ALL NURSING CARE NEEDS ATTENDED TO NEEDED. IV INTACT AND PATENT NO REDNESS OR SWELLING NOTED. NO IV FLUIDS AT THIS TIME. PHOSPHORUS AND MAGNESIUM BOTH REPLACED PO. ON 2L/MIN OF OXYGEN. POSSIBLE DISCHARGE WILL ENDORSE TO DENTAL BILLER FOR AGUILA
--- NOTE | 2017-11-13 19:45 | NUR ---
MS RN NOTE: PATIENT RESTING IN BED, NO ACUTE DISTRESS NOTED. BREATHING EVEN AND UNLABORED, NO SOB NOTED. IV TO RIGHT HAND #[address] BED LOCKED AND IN LOWEST POSITION, CALL LIGHT IN REACH. WILL CONTINUE TO MONITOR.
[2017-11-13 20:00] VITALS: BP 123/63
[2017-11-14] MEDS: methylPREDNISolone SOD SUCC 125 MG/2ML VIAL IV SCH ×2 (01:31→08:48)
[2017-11-14] MEDS: IPRATROPIUM NEB FS 0.5 MG/2.5 ML AMPUL.NEB NEB SCH ×4 (02:41→15:30)
--- NOTE | 2017-11-14 06:30 | NUR ---
MS RN NOTE: PATIENT RESTING IN BED, NO ACUTE DISTRESS NOTED. BREATHING EVEN AND UNLABORED, NO SOB NOTED. IV TO RIGHT HAND #[address] BED LOCKED AND IN LOWEST POSITION, CALL LIGHT IN REACH. WILL ENDORSE TO DAY NURSE TO CONTINUE WITH PLAN OF CARE.
--- NOTE | 2017-11-14 07:30 | NUR ---
MS/RN Patient received Patient received from restaurant shift leader. No acute shortness of breath, oxygen via nasal cannula at 2l per minute. All needs attended, call light within reach.
[2017-11-14] MEDS ORDERED: ATOR40TA PO (07:59)
[2017-11-14] MEDS ORDERED: DILT240C64 PO (07:59)
[2017-11-14] MEDS ORDERED: LEVO500T2 PO (07:59)
[2017-11-14] MEDS ORDERED: PRED20TA PO (07:59)
[2017-11-14] MEDS ORDERED: ASPI-1169 PO (07:59)
[2017-11-14 08:00] VITALS: BP 140/76
[2017-11-14] MEDS: LEVALBUTEROL HCL NEB 1.25 MG/0.5 ML VIAL.NEB NEB SCH ×2 (08:04→15:30)
[2017-11-14] MEDS: ATORVASTATIN 40 MG TABLET PO SCH (08:48)
[2017-11-14] MEDS: ASPIRIN 81 MG TAB.CHEW PO SCH (08:48)
[2017-11-14 08:49] VITALS: BP 140/76
[2017-11-14] MEDS: DILTIAZEM HCL CD 240 MG PO SCH (08:49)
[2017-11-14] MEDS: NYSTATIN (PYXIS) 500,000 UNIT/5 ML ORAL.SUSP PO SCH (08:50)
[2017-11-14] MEDS: FLUTICASONE/VILANTEROL 1 EACH BLST.W.DEV IH SCH (08:50)
--- NOTE | 2017-11-14 09:00 | NUR ---
MS/RN Medications Morning medications administered as ordered.
--- NOTE | 2017-11-14 09:30 | NUR ---
MS/prior authorization nurse Head to toe assessment completed, see flow sheet.
--- NOTE | 2017-11-14 10:00 | NUR ---
MS/RN Exit care Discharge paperwork prepared, for possible discharge later today.
[2017-11-14] MEDS: LEVOFLOXACIN (500MG) 500 MG TABLET PO SCH (12:45)
--- NOTE | 2017-11-14 13:00 | NUR ---
MS/RN S/B Dr Cleveland Seen by Dr Cleveland - patient to be discharged to home today, prescriptions wrote. All questions answered.
--- NOTE | 2017-11-14 13:30 | NUR ---
MS/RN S/B Dr Curtis Seen by Dr Curtis - cleared for discharge.
--- NOTE | 2017-11-14 14:29 | NUR ---
MS/housekeeping assistant Patient discharged to home in stable condition. All personal belongings accounted for on belongings list. Heplock removed, pressure dressing applied, name bands removed. Education provided to patient about safe use of oxygen at home and how to connect and regulate amount of oxygen to administer. Medications for home use explained, including what each medication was for and possible side effects. Both patient and stated understanding. Prescriptions copied, original to patient and copy for chart. Two complete copies of medical record provided, one for patient reference and one for primary care doctor in [place]. Escorted to main lobby by STRIKE OPERATIONS OFFICER with family.
== END 2017-11-14 14:30 | disposition home or self-care (01) | DRG 280 ==
LOC: ER 09:07 → TELE-TD 10:53 → TELE1 11-08 10:00 → MEDSG1 11-11 11:02 → MEDSG2 11-11 22:23
PROVIDERS: ADMIT Internal Medicine; ATTEND Internal Medicine
DX: I21.4 Non-ST elevation (NSTEMI) myocardial infarction (principal); E43 Unspecified severe protein-calorie malnutrition; I47.2 Ventricular tachycardia; D68.59 Other primary thrombophilia; Z99.81 Dependence on supplemental oxygen; I48.91 Unspecified atrial fibrillation; J44.0 Chronic obstructive pulmonary disease with (acute) lower respiratory infection; J44.1 Chronic obstructive pulmonary disease with (acute) exacerbation; I10 Essential (primary) hypertension; Z79.899 Other long term (current) drug therapy; J40 Bronchitis, not specified as acute or chronic; Z87.891 Personal history of nicotine dependence; Z87.01 Personal history of pneumonia (recurrent); M81.0 Age-related osteoporosis without current pathological fracture; E78.5 Hyperlipidemia, unspecified
CPT/HCPCS: 36415; 36600; 71010-TC; 80048-TC; 80053-TC; 80061-TC; 80076-TC; 80305; 81000-TC; 82150-TC; 82306; 83690-TC; 83735-TC; 83880; 84100-TC; 84439-TC; 84443-TC; 84484-TC; 85025-TC; 85378-TC; 85610-TC; 85730-TC; 87040-TC; 87081-TC; 87086-TC; 93307-TC; 93970-TC; 93976-TC; 94799-TC; A4606; J1650; J2930; J7030; Z7610